=== PATIENT | female | born 1980 | race Caucasian/White ===

== ENCOUNTER → 2019-10-01 | Outpatient (CLI) | payer OTHER ==
[~2019-10-01] MED LIST: ALBU8.5H8 INH; BUDE10.2 INH; ESOM20CA PO
[2019-10-01 12:06] LABS: BASOPHILS # (AUTO) 0.03 x10^3/uL (0-0.1); BASOPHILS % (AUTO) 1 % (0-1); EOSINOPHILS % (AUTO) 3 % (1-7); LYMPHOCYTES # (AUTO) 1.84 x10^3/uL (1-3.4); LYMPHOCYTES % (AUTO) 29 % (22-44); MD NO; MEAN CORPUSCULAR HEMOGLOBIN 30.2 pg (27.0-34.8); MEAN CORPUSCULAR HGB CONC 32.8 g/dL (32.4-35.8); MEAN CORPUSCULAR VOLUME 92.2 fL (80-100); MEAN PLATELET VOLUME 8.3 fL (7.4-10.4); MONOCYTES # (AUTO) 0.37 x10^3/uL (0.2-0.8); MONOCYTES % (AUTO) 6 % (2-9); NEUTROPHILS # (AUTO) 3.88 x10^3/uL (1.8-6.8); NEUTROPHILS % (AUTO) 61 % (42-75); PLATELET COUNT 338 x10^3/uL (130-400); RED BLOOD COUNT 4.98 x10^6/uL (3.82-5.3); RED CELL DISTRIBUTION WIDTH 13.2 % (9.6-15.2)
[2019-10-01 13:00] LABS: ALBUMIN 3.9 g/dL (3.4-5.0); CALCIUM 8.9 mg/dL (8.5-10.1); CREATININE 0.85 mg/dL (0.55-1.02)
[2019-10-01 13:28] LABS: % IRON SATURATION 27 % (20-55); ALANINE AMINOTRANSFERASE 31 U/L (12-78); ALKALINE PHOSPHATASE 81 U/L (45-117); ANION GAP 7 mmol/L (5-15); BILIRUBIN,TOTAL 0.4 mg/dL (0.2-1.0); CHLORIDE 109 mmol/L (98-107); CHOL/HDL RATIO 4.8; CHOLESTEROL, TOTAL 171 mg/dL (140-239); HDL CHOL % 21 % (28-40); HDL CHOLESTEROL (DIRECT) 36 mg/dL (40-60); IRON LEVEL 96 mcg/dL (50-170); LDL CHOLESTEROL,CALCULATED 104 mg/dL (54-169); LDL/HDL RATIO 2.9 (0.5-3.0); PREALBUMIN 25.8 mg/dL (20.0-40.0); TOTAL IRON BINDING CAPACITY 352 mcg/dL (250-450); TOTAL PROTEIN 6.9 g/dL (6.4-8.2); TRANSFERRIN 254 mg/dL (200-360); TRIGLYCERIDES 153 mg/dL (50-200); VLDL CHOLESTEROL 31 mg/dL (0-25)
== END | disposition home or self-care (01) ==
LOC: STAR 10:33
PROVIDERS: ATTEND Thoracic Surgery (Cardiothoracic Vascular Surgery)
DX: Z01.818 Encounter for other preprocedural examination (principal)
CPT/HCPCS: 36415; 71046; 80053; 80061; 82306; 82607; 82728; 83540; 83550; 83970; 84134; 84466; 85025; 93005

== ENCOUNTER → 2019-10-05 | Outpatient (CLI) | payer OTHER | END | disposition home or self-care (01) | LOC: STAR 10:21 | PROVIDERS: ATTEND Thoracic Surgery (Cardiothoracic Vascular Surgery) | DX: Z01.818 Encounter for other preprocedural examination (principal) | CPT/HCPCS: 36415; 84425 ==

== ENCOUNTER 2019-10-10 06:06 | Inpatient (IN) | payer OTHER ==
[~2019-10-10] VITALS: Ht 160 cm; Wt 93.0 kg
[2019-10-10] MEDS ORDERED: LACTATED RINGERS 1,000 ML IV SCH (06:46)
[2019-10-10] MEDS ORDERED: BUPIVACAINE/PF-EPI 0.5% 1:200K ONE (06:47)
[2019-10-10 06:49] VITALS: BP 116/82
[2019-10-10] MEDS ORDERED: CHLORHEXIDINE 15 ML UDC ONE (06:53)
[2019-10-10 06:56] LABS: HCG UR SG 1.017 (1.003-1.030)
[2019-10-10] MEDS ORDERED: CHLORHEXIDINE 15 ML UDC MM ONE (07:00)
[2019-10-10] MEDS ORDERED: SCOPOLAMINE 1MG PATCH TD ONE ×2 (07:13→07:30)
[2019-10-10] MEDS ORDERED: SUGAMMADEX 200 MG/2 ML IVPush ONE (07:34)
[2019-10-10] MEDS ORDERED: KETOROLAC 30 MG/1 ML ONE (07:34)
[2019-10-10] MEDS ORDERED: SUCCINYLCHOLINE 20 MG/ML, 10ML ONE (07:34)
[2019-10-10] MEDS ORDERED: CEFAZOLIN 1,000 MG ONE (07:34)
[2019-10-10] MEDS ORDERED: MIDAZOLAM 1 MG/ML, 2ML ONE (07:34)
[2019-10-10] MEDS ORDERED: ONDANSETRON 2MG/ML, 2ML ONE (07:34)
[2019-10-10] MEDS ORDERED: DEXAMETHASONE 4 MG/ML, 1ML ONE (07:34)
[2019-10-10] MEDS ORDERED: PROPOFOL 10 MG/ML, 20ML ONE (07:34)
[2019-10-10] MEDS ORDERED: ROCURONIUM 10 MG/ML,10ML ONE (07:34)
[2019-10-10] MEDS ORDERED: OXYcodone 5 MG/5 ML ORAL.SOL UDC PO PRN (08:00)
[2019-10-10] MEDS ORDERED: LABETALOL 5MG/ML, 20ML IV PRN (08:00)
[2019-10-10] MEDS ORDERED: ALBUTEROL SULFATE 2.5 MG/3 ML NPPB PRN (08:00)
[2019-10-10] MEDS ORDERED: METOCLOPRAMIDE 5 MG/ML, 2ML IV PRN (08:00)
[2019-10-10] MEDS ORDERED: ONDANSETRON 2MG/ML, 2ML IVPush PRN ×2 (08:00→09:00)
[2019-10-10] MEDS ORDERED: PROMETHAZINE 25 MG/ML, 1ML IV PRN (08:00)
[2019-10-10] MEDS ORDERED: hydrALAzine 20 MG/ML, 1ML IV PRN (08:00)
[2019-10-10] MEDS ORDERED: MEPERIDINE/PF 25MG/0.5ML IVPush PRN (08:00)
[2019-10-10] MEDS ORDERED: DIAZEPAM 5 MG/ML, 2ML IV PRN ×2 (08:00)
[2019-10-10] MEDS ORDERED: KETOROLAC 30 MG/1 ML IV PRN (08:00)
[2019-10-10] MEDS: LACTATED RINGERS 1,000 ML IV SCH ×4 (08:50→21:47)
[2019-10-10] MEDS: FENTANYL PF 100 MCG/2ML IV PRN ×2 (08:51→08:59)
[2019-10-10] MEDS ORDERED: FENTANYL PF 100 MCG/2ML ONE (08:56)
[2019-10-10] MEDS ORDERED: HYDROmorphone 1 MG/ML, 1ML INJ ONE (08:57)
[2019-10-10] MEDS: HYDROmorphone 1 MG/ML, 1ML INJ IV PRN ×2 (08:59→09:07)
[2019-10-10] MEDS ORDERED: LORazepam 2 MG/ML, 1ML IV PRN (09:00)
[2019-10-10] MEDS ORDERED: PROMETHAZINE 12.5 MG SUPP PR PRN (09:00)
[2019-10-10] MEDS ORDERED: PHENOL THROAT SPRAY BOTTLE MM PRN (09:00)
[2019-10-10] MEDS ORDERED: ALBUTEROL HFA 90 MCG/SPRAY INH PRN (09:00)
[2019-10-10] MEDS ORDERED: PROMETHAZINE 25 MG/ML, 1ML IM PRN (09:00)
[2019-10-10] MEDS ORDERED: ENALAPRILAT 1.25 MG/ML, 2ML IV PRN (09:00)
[2019-10-10] MEDS ORDERED: hydrALAzine 20 MG/ML, 1ML IVPush PRN (09:00)
[2019-10-10] MEDS ORDERED: DIPHENHYDRAMINE 50 MG/ML, 1ML IV PRN (09:00)
[2019-10-10 10:28] VITALS: BP 120/73
[2019-10-10] MEDS: morphine SULFATE 10 MG/ML, 1ML IVPush PRN ×2 (11:34→13:03)
[2019-10-10] MEDS: FAMOTIDINE 20 MG/2 ML IVPush SCH ×2 (11:34→21:58)
[2019-10-10 12:31] VITALS: BP 130/89
[2019-10-10] MEDS: KETOROLAC 30 MG/1 ML IVPush PRN (16:15)
[2019-10-10] MEDS ORDERED: HYDROcodone/APAP 7.5-325MG/15ML UDC PO PRN (17:00)
[2019-10-10 20:45] VITALS: BP 132/81
[2019-10-11] MEDS: KETOROLAC 30 MG/1 ML IVPush PRN ×2 (00:25→08:20)
[2019-10-11 01:27] VITALS: BP 100/61
[2019-10-11] MEDS: LACTATED RINGERS 1,000 ML IV SCH ×2 (04:51→12:20)
[2019-10-11 04:55] LABS: BASOPHILS # (AUTO) 0.03 x10^3/uL (0-0.1); BASOPHILS % (AUTO) 0 % (0-1); EOSINOPHILS # (AUTO) 0.02 x10^3/uL (0-0.4); EOSINOPHILS % (AUTO) 0 % (1-7); LYMPHOCYTES # (AUTO) 1.71 x10^3/uL (1-3.4); LYMPHOCYTES % (AUTO) 16 % (22-44); MD NO; MEAN CORPUSCULAR HEMOGLOBIN 30.8 pg (27.0-34.8); MEAN CORPUSCULAR HGB CONC 33.6 g/dL (32.4-35.8); MEAN PLATELET VOLUME 8.7 fL (7.4-10.4); MONOCYTES # (AUTO) 0.72 x10^3/uL (0.2-0.8); MONOCYTES % (AUTO) 7 % (2-9); NEUTROPHILS # (AUTO) 8.29 x10^3/uL (1.8-6.8); NEUTROPHILS % (AUTO) 77 % (42-75); PLATELET COUNT 328 x10^3/uL (130-400); RED BLOOD COUNT 4.68 x10^6/uL (3.82-5.3); RED CELL DISTRIBUTION WIDTH 13.3 % (9.6-15.2)
[2019-10-11 04:56] LABS: ALBUMIN 3.4 g/dL (3.4-5.0); ANION GAP 5 mmol/L (5-15); CALCIUM 8.7 mg/dL (8.5-10.1); CHLORIDE 109 mmol/L (98-107); CREATININE 0.63 mg/dL (0.55-1.02)
[2019-10-11 06:30] VITALS: BP 117/78
[2019-10-11] MEDS: FAMOTIDINE 20 MG/2 ML IVPush SCH (08:14)
[2019-10-11] MEDS ORDERED: OXYcodone IR 5MG TABLET PO PRN (08:30)
[2019-10-11] MEDS ORDERED: ENOXAPARIN 40 MG/0.4 ML SQ SCH (09:00)
[2019-10-11] MEDS ORDERED: OXYC5TAB2 PO (10:37)
== END 2019-10-11 13:35 | disposition home or self-care (01) | DRG 621 ==
LOC: ORIP 06:06 → 4NE 10:11 → DCLOUNGE 10-11 13:26
PROVIDERS: ADMIT Thoracic Surgery (Cardiothoracic Vascular Surgery); ATTEND Thoracic Surgery (Cardiothoracic Vascular Surgery)
PROC: 0DB64Z3 Excision of Stomach, Percutaneous Endoscopic Approach, Vertical (ICD-10-PCS; 2019-10-10)
PROC: 0BQT4ZZ Repair Diaphragm, Percutaneous Endoscopic Approach (ICD-10-PCS; principal; 2019-10-10 07:30)
DX: E66.01 Morbid (severe) obesity due to excess calories (principal); K44.9 Diaphragmatic hernia without obstruction or gangrene; Z68.36 Body mass index [BMI] 36.0-36.9, adult; J45.909 Unspecified asthma, uncomplicated; K21.9 Gastro-esophageal reflux disease without esophagitis; Z03.818 Encounter for observation for suspected exposure to other biological agents ruled out
CPT/HCPCS: 36415; J3490; 80048; 81025; 82040; 85025; 87635; G0378; J0690; J1100; J1170; J1650; J1885; J2250; J2405; J2704; J3010; J0330; J2270; J7120